=== PATIENT | male | born 1980 | race Caucasian/White ===

== ENCOUNTER 2017-05-04 21:15 | Emergency (ER) | payer SELFPAY ==
[~2017-05-04] VITALS: Ht 160 cm; Wt 64.9 kg
[2017-05-04 21:24] VITALS: BP 108/67
== END 2017-05-04 21:49 | disposition home or self-care (01) ==
LOC: ER 21:20
DX: S61.253A Open bite of left middle finger without damage to nail, initial encounter (principal); J45.909 Unspecified asthma, uncomplicated; W54.0XXA Bitten by dog, initial encounter; Y92.89 Other specified places as the place of occurrence of the external cause; Y93.89 Activity, other specified; Y99.9 Unspecified external cause status
CPT/HCPCS: A4606; A6402; Z7610

== ENCOUNTER 2017-09-16 17:23 | Emergency (ER) | payer SELFPAY ==
[~2017-09-16] VITALS: Ht 160 cm; Wt 67.1 kg
[2017-09-16 17:28] VITALS: BP 104/56
== END 2017-09-16 18:47 | disposition home or self-care (01) ==
LOC: ER 17:27
DX: H00.025 Hordeolum internum left lower eyelid (principal); J45.909 Unspecified asthma, uncomplicated
CPT/HCPCS: 99281; A4606; Z7610; Z7502